=== PATIENT | female | born 1950 | race Two or more races ===

== ENCOUNTER 2020-05-04 21:57 | Inpatient (IN) | payer MEDICARE, OTHER ==
[~2020-05-04] VITALS: Ht 147.3 cm; Wt 82.6 kg
[2020-05-04] MEDS ORDERED: IBUP-1955 PO (22:13)
[2020-05-04] MEDS ORDERED: ACET-2605 PO (22:13)
[2020-05-04] MEDS ORDERED: LISI-603 PO (22:13)
--- NOTE | 2020-05-04 22:20 | NUR ---
Dr. Brenner at bedside for MSE.
--- NOTE | 2020-05-04 22:30 | NUR ---
Xray at bedside.
[2020-05-04] MEDS ORDERED: diphenhydrAMINE 50 MG/1 ML VIAL ONE (22:39)
[2020-05-04] MEDS ORDERED: ZIPRASIDONE MESYLATE 20 MG VIAL IM ONE ×4 (22:39→23:45)
[2020-05-04] MEDS ORDERED: diphenhydrAMINE 50 MG/1 ML VIAL IM ONE (22:45)
--- NOTE | 2020-05-05 00:20 | NUR ---
Unable to draw blood due to patient refusing, notified.
--- NOTE | 2020-05-05 00:21 | NUR ---
Called [facility] to page Pennie Wooten NP.
--- NOTE | 2020-05-05 00:30 | NUR ---
Dr. Brenner on panel call with Pennie Wooten NP.
--- NOTE | 2020-05-05 00:35 | NUR ---
Patient to be medically cleared by Pennie Wooten NP. Patient accepted for admission to [facility], diagnosis: psychosis.
--- NOTE | 2020-05-05 00:43 | NUR ---
Report given to Kandace DELA CRUZU.
[2020-05-05] MEDS ORDERED: IBUPROFEN 600 MG TABLET PO PRN (00:45)
[2020-05-05] MEDS ORDERED: MAG HYDROX/AL HYDROX/SIMETH 30 ML LIQUID UDC PO PRN (01:15)
[2020-05-05] MEDS ORDERED: ACETAMINOPHEN 325 MG TABLET PO PRN (01:15)
[2020-05-05] MEDS ORDERED: BLOOD SUGAR DIAGNOSTIC 1 EACH STRIP VI ONE (01:15)
[2020-05-05] MEDS ORDERED: TEMAZEPAM 7.5 MG CAPSULE PO PRN (01:15)
[2020-05-05] MEDS ORDERED: MAGNESIUM HYDROXIDE 30 ML LIQUID UDC PO PRN (01:15)
[2020-05-05 01:23] VITALS: BP 109/61
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
[2020-05-05 06:37] LABS: *BILIRUBIN,URIN 1+ (NEGATIVE); *BLOOD, URINE NEGATIVE (NEGATIVE); *CLARITY,URINE SLIGHTLY CLOUDY (CLEAR); *COLOR,URINE YELLOW (YELLOW); *KETONES,URINE NEGATIVE (NEGATIVE); *UROBILINOGEN,URINE 0.2 E.U./dl (NORMAL); LEUKOCYTE ESTERASE ,URINE TRACE (NEGATIVE); NITRITE, URINE NEGATIVE (NEGATIVE); PH,URINE 5.5 (5.0-8.0); UGLUCOSE NEGATIVE (NEGATIVE)
[2020-05-05 07:18] LABS: BILIRUBIN,DIRECT 0.1 mg/dL (0.0-0.2); BILIRUBIN,TOTAL 0.4 mg/dL (0.2-1.0); CREATININE 0.8 mg/dL (0.6-1.3); POTASSIUM 3.7 mmol/L (3.5-5.1); TOTAL PROTEIN, SERUM 8.1 g/dL (6.4-8.2)
[2020-05-05 07:27] LABS: THYROID STIMULATING HORMONE 3.348 mIU/mL (0.358-3.740)
[2020-05-05 07:30] VITALS: BP 112/56
[2020-05-05 07:33] LABS: BASOPHILS # (AUTO) 0.1 K/uL (0.0-8.0); BASOPHILS % (AUTO) 0.7 % (0.0-2.0); EOSINOPHILS # (AUTO) 0.1 K/uL (0.0-0.7); EOSINOPHILS % (AUTO) 1.4 % (0.0-7.0); HEMATOCRIT 44.9 % (31.2-41.9); HEMOGLOBIN 15.1 g/dL (10.9-14.3); LYMPHOCYTES % (AUTO) 29.4 % (20.5-51.5); MEAN CORPUSCULAR HGB CONC 34 g/dL (32.3-35.6); MEAN CORPUSCULAR VOLUME 89.5 fL (75.5-95.3); MONOCYTES # (AUTO) 0.4 K/uL (2.0-10.0); MONOCYTES % (AUTO) 6.1 % (0.0-11.0); NEUTROPHILS # (AUTO) 4.2 K/uL (1.8-8.9); NEUTROPHILS % (AUTO) 62.4 % (38.5-71.5); PLATELET COUNT (AUTO) 304 K/uL (179-408); RED BLOOD CELL COUNT(AUTO) 5.02 MIL/uL (3.63-4.92); WHITE BLOOD COUNT (AUTO) 6.8 K/uL (3.8-11.8)
[2020-05-05] MEDS: LISINOPRIL 20 MG TABLET PO SCH (08:26)
[2020-05-05] MEDS: HALOPERIDOL 1 MG TABLET PO SCH ×2 (10:07→17:32)
[2020-05-05 11:49] LABS: RBC,URINE 0-3 /HPF (0-3)
--- NOTE | 2020-05-05 11:50 | NUR ---
KLAUDIA Initial Discharge Plan: Patient currently resides at home [id number] [place], [place] [id number] ([phone]). Patient lives with her daughter, Christine ([phone]) and her grandson, Angelo. Pt would like to return home. KLAUDIA will continue to work with patient, family, and MD to ensure a safe and proper discharge plan.
[2020-05-05 11:51] LABS: BACTERIA,URINE FEW /HPF (NONE SEEN); SQUAMOUS EPITHELIAL CELL,UR FEW /HPF (NONE SEEN)
[2020-05-05 11:52] LABS: URINE AMORPHOUS URATE MANY /HPF
--- NOTE | 2020-05-05 12:02 | NUR ---
KLAUDIA Family Contact: SW let a voicemail for pt's daughter, Christine ([phone]) and her grandson, Angelo to discuss treatment and discharge plan. Waiting for a call back.
--- NOTE | 2020-05-05 13:19 | NUR ---
Firearms Report: Apple Thinner completed and submitted a [employer] firearms report for 5150 danger to self and danger to others certification. A copy of report has been placed in patient chart.
--- NOTE | 2020-05-05 14:39 | NUR ---
UR NOTE: KLAUDIA spoke with Wilmer from [facility] ( ) who stated that he does not have any clinical information on the patient to provide an authorization number yet. This write faxed Wilmer the patient's face sheet, 5150 hold, history and physical, medication and labs. Waiting for a call back for authorization #.
[2020-05-05 15:18] VITALS: BP 120/55
[2020-05-05] MEDS: BENZTROPINE MESYLATE 0.5 MG TABLET PO SCH (17:32)
[2020-05-05 20:00] VITALS: BP 116/56
--- NOTE | 2020-05-05 23:11 | NUR ---
GPS: Pt was received pt in her bed, asleep but responded to her name. No c/o pain or discomfort. Pt is isolative with no interest to participate in programs. stays in her room and covered in blankest. No aggression or abnormal behavior noted. Will continue to monitor.
[2020-05-06 07:38] VITALS: BP 112/68
[2020-05-06] MEDS: BENZTROPINE MESYLATE 0.5 MG TABLET PO SCH ×2 (08:16→17:42)
[2020-05-06] MEDS: LISINOPRIL 20 MG TABLET PO SCH (08:16)
[2020-05-06] MEDS: HALOPERIDOL 1 MG TABLET PO SCH ×2 (08:16→17:42)
--- NOTE | 2020-05-06 13:20 | NUR ---
UR NOTE: KLAUDIA spoke with Wilmer from [facility] ( ) who provided this data analyst report writer with authorization # [id number]
[2020-05-06 15:11] VITALS: BP 170/75
[2020-05-06] MEDS: NITROFURANTOIN/NITROFURAN MAC 100 MG CAPSULE PO SCH (17:42)
[2020-05-06 20:00] VITALS: BP 118/65
[2020-05-06] MEDS: ATORVASTATIN 20 MG TABLET PO SCH (20:23)
--- NOTE | 2020-05-06 21:14 | NUR ---
Received patient sitting in the dinning room. AAOx3. Patient denied pain and discomfort at this time. Engaged in conversation when approached. Compliant with evening medications, at first hesitant saying "Im allergic to poison", reenforced to her the purpose of the medication. safety measures in place and Q15 min checks ongoing.
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
[2020-05-07 07:30] VITALS: BP 130/56
[2020-05-07] MEDS: NITROFURANTOIN/NITROFURAN MAC 100 MG CAPSULE PO SCH ×2 (08:38→17:06)
[2020-05-07] MEDS: BENZTROPINE MESYLATE 0.5 MG TABLET PO SCH ×2 (08:38→17:05)
[2020-05-07] MEDS: HALOPERIDOL 1 MG TABLET PO SCH ×2 (08:38→17:06)
[2020-05-07] MEDS: LISINOPRIL 20 MG TABLET PO SCH (08:39)
--- NOTE | 2020-05-07 10:18 | NUR ---
UR NOTE: Authorization # [id number] faxed Wilmer from [facility] ( ) updated patient clinicals.
--- NOTE | 2020-05-07 10:46 | NUR ---
KLAUDIA Family Contact: SW spoke with pt's daughter, Christine ([phone]) discussing the pt's treatment and discharge plan. Christine stated they would like the patient tor return home stable and they will provide transportation. She also provided this group underwriter with the patient primary care physician's information, Tobi Barclay ([phone]).
--- NOTE | 2020-05-07 10:54 | NUR ---
Hearing Notification: Pt has probable cause hearing today and it was upheld for Grave Disability.
--- NOTE | 2020-05-07 13:36 | NUR ---
KLAUDIA Individual Intervention: SW met with patient and provided brief individual counseling to help patient gain insight towards her presenting problems and encourage patient to attend group activities and engage in social interaction. Patient presents depressed and guarded. Patient was responding in one worded answers and not making direct eye contact for too long. SW asked patient questions such as how pt is feeling and if she has any concerns however patient responses were "fine" and "no". SW positively encouraged patient to share her feelings and talk to peers in group or individually.
[2020-05-07 16:09] VITALS: BP 133/58
[2020-05-07 19:56] VITALS: BP 127/55
[2020-05-07] MEDS: ATORVASTATIN 20 MG TABLET PO SCH (21:00)
--- NOTE | 2020-05-07 21:42 | NUR ---
Patient refused Lipitor QHS, multiple redirection given and rationale was explained, yet refused. will continue to monitor.
[2020-05-08 07:30] VITALS: BP 133/58
--- NOTE | 2020-05-08 08:00 | NUR ---
Awake, alert, oriented x 3, calm, compliant with taking medications. Ate fairly. Had shower
[2020-05-08] MEDS: BENZTROPINE MESYLATE 0.5 MG TABLET PO SCH ×2 (08:20→17:02)
[2020-05-08] MEDS: HALOPERIDOL 1 MG TABLET PO SCH ×2 (08:21→17:02)
[2020-05-08] MEDS: NITROFURANTOIN/NITROFURAN MAC 100 MG CAPSULE PO SCH ×2 (08:21→17:02)
[2020-05-08] MEDS: LISINOPRIL 20 MG TABLET PO SCH (08:21)
[2020-05-08 20:00] VITALS: BP 149/69
[2020-05-08] MEDS: ATORVASTATIN 20 MG TABLET PO SCH (21:00)
--- NOTE | 2020-05-08 22:00 | NUR ---
Patient refused Lipitor QHS, multiple redirections given yet ineffective. will continue to monitor.
[2020-05-09 07:30] VITALS: BP 111/42
[2020-05-09] MEDS: LISINOPRIL 20 MG TABLET PO SCH (08:26)
[2020-05-09] MEDS: HALOPERIDOL 1 MG TABLET PO SCH ×2 (08:29→17:28)
[2020-05-09] MEDS: NITROFURANTOIN/NITROFURAN MAC 100 MG CAPSULE PO SCH (08:29)
[2020-05-09] MEDS: BENZTROPINE MESYLATE 0.5 MG TABLET PO SCH ×2 (08:29→17:28)
--- NOTE | 2020-05-09 11:35 | NUR ---
Patient is cooperative, visible on the unit, and has appropriate interaction with peers and staff. Patient participates in assessment with this abstract writer but only with "yes" and "no" questions. patient denies SI/HI, denies AH/Vh. Patient is medication adherent, no adverse reaction noted. Patient is encouraged to participate in unit groups and activities, to participate in the therapeutic milieu. Patient is able to ambulate independently and perform self care and ADL's.
--- NOTE | 2020-05-09 12:47 | NUR ---
UR NOTE: Authorization # [id number] faxed Wilmer from [facility] ( ) updated patient clinicals.
[2020-05-09 16:00] VITALS: BP 130/56
[2020-05-09 20:00] VITALS: BP 135/63
[2020-05-09] MEDS: ATORVASTATIN 20 MG TABLET PO SCH (20:48)
--- NOTE | 2020-05-10 07:04 | NUR ---
Patient slept for approx 6.15 hrs through the night. She is noted less isolative, less withdrawn. Continue with low mood, blunted affect. will continue to monitor.
[2020-05-10 07:30] VITALS: BP 150/55
[2020-05-10] MEDS: HALOPERIDOL 1 MG TABLET PO SCH ×2 (08:28→16:53)
[2020-05-10] MEDS: LISINOPRIL 20 MG TABLET PO SCH (08:28)
[2020-05-10] MEDS: BENZTROPINE MESYLATE 0.5 MG TABLET PO SCH ×2 (08:28→16:53)
[2020-05-10 16:00] VITALS: BP 156/57
[2020-05-10 20:00] VITALS: BP 121/60
[2020-05-10] MEDS: ATORVASTATIN 20 MG TABLET PO SCH (20:04)
[2020-05-11] MEDS: LORAZEPAM 1 MG TABLET PO PRN (02:54)
[2020-05-11 07:30] VITALS: BP 108/45
[2020-05-11] MEDS: LISINOPRIL 20 MG TABLET PO SCH (09:00)
[2020-05-11] MEDS: BENZTROPINE MESYLATE 0.5 MG TABLET PO SCH ×4 (09:06→21:00)
[2020-05-11] MEDS: HALOPERIDOL 1 MG TABLET PO SCH ×2 (09:07→16:18)
[2020-05-11] MEDS ORDERED: ONDANSETRON HCL 4 MG TABLET PO PRN (10:15)
[2020-05-11 16:17] VITALS: BP 134/49
[2020-05-11 20:45] VITALS: BP 125/58
[2020-05-11] MEDS: ACETAMINOPHEN ES 500 MG TABLET PO PRN (21:02)
[2020-05-11] MEDS: ATORVASTATIN 20 MG TABLET PO SCH (21:02)
--- NOTE | 2020-05-12 02:00 | NUR ---
RECEIVED PATIENT IN BED.NOTED ISOLATIVE,WITH BLUNTED AFFECT AND LOW MOOD. SELECTIVE MEDICATION COMPLIANT SHE REFUSED HER COGENTIN.RISK AND BENEFIT EXPLAINED.LATER REQUESTED FOR TAB TYLENOL FOR HEADACHE. SAME GIVEN WITH GOOD EFFECT. VISUAL CHECKS MADE ON HER FOR SAFETY. WILL CONTINUE TO MONITOR.
--- NOTE | 2020-05-12 06:45 | NUR ---
SLEPT FOR 6:45HOURS.
[2020-05-12] MEDS: HALOPERIDOL 1 MG TABLET PO SCH ×2 (08:48→17:06)
[2020-05-12] MEDS: LISINOPRIL 20 MG TABLET PO SCH (08:49)
[2020-05-12] MEDS: BENZTROPINE MESYLATE 0.5 MG TABLET PO SCH ×4 (08:49→20:09)
[2020-05-12 09:12] VITALS: BP 124/53
--- NOTE | 2020-05-12 11:20 | NUR ---
UR NOTE: Authorization # [id number] faxed Wilmer from [facility] ( ) updated patient clinicals.
[2020-05-12 17:35] VITALS: BP 133/69
[2020-05-12] MEDS: ACETAMINOPHEN ES 500 MG TABLET PO PRN (19:41)
[2020-05-12] MEDS: LORAZEPAM 1 MG TABLET PO PRN (19:41)
[2020-05-12 20:00] VITALS: BP 161/62
[2020-05-12] MEDS: ATORVASTATIN 20 MG TABLET PO SCH (20:09)
--- NOTE | 2020-05-13 01:44 | NUR ---
Received Pt in her room, anxious and upset on approach. Pt c/o (R) sided 7/10 leg pain, Tylenol ES 1000mg administered as ordered at 1940 with good effect, Pt expressed relief at 2029. Ativan 1mg administered for anxiety at 1940 with good effect, Pt appeared calm and relaxed at 2030. Exhibited flat affect and has episodes of irritability. Denies AH/VH but appears internally preoccupied. Compliant with medications, cooperative with staff direction. Denies SI/HI, verbally contracts for safety. BP elevated at beginning of shift, and decreased to a 145/66 upon re-check, Pt denies any s/s of HTN. In no acute physical distress, will continue to monitor.
[2020-05-13 07:39] VITALS: BP 122/49
--- NOTE | 2020-05-13 08:01 | NUR ---
Discharge Note: Patient will be discharged back home [address] [place] [address] ([phone]). Patients daughterChristine ([phone]) is aware and agreeable with discharge plans and arranged transportation today between 9:30-10AM. Patient is alert and oriented times 4. Patient presents with appropriate mood and bright affect. Patient denies suicidal or homicidal ideation. Patient denies visual or auditory hallucinations. Patient is aware and agreeable with discharge plans. Patient will be following up with her primary care physician Tobi Barclay at [address], [place] [address] ([phone]) and has an appointment scheduled on Thursday May 21, 2020 at 11:30am via Telehealth. Patient will be following up with Nurse Practitioner Christine Peralta at [facility] [address], [address] ([phone]) and has an appointment scheduled on June 09, 2020 at 11AM via Telephone for an intake evaluation and then will be assigned a psychiatrist.
[2020-05-13] MEDS: HALOPERIDOL 1 MG TABLET PO SCH (08:30)
[2020-05-13] MEDS: BENZTROPINE MESYLATE 0.5 MG TABLET PO SCH (08:30)
[2020-05-13 08:31] VITALS: BP 122/49
[2020-05-13] MEDS: LISINOPRIL 20 MG TABLET PO SCH (08:31)
--- NOTE | 2020-05-13 09:15 | NUR ---
GPS: Nursing Notes: Discharge Notes: Patient is awake and responding to her name, cooperative with nursing care, compliant with her medications, following staff directions, A/Ox4, denies any SI/HI, denies any AH/VH, denies any pain or discomfort, denies any SOB, discharge to Patient's daughter Michael King at [address] [place] [address]. Charge Nurse called [facility] at , picked up by daughter arranged transportation, staff called daughter - Christine, informed her that she needs to pickling grader patient's medication form [facility] and instructions of her discharge given too. Patient took all her belongings with her. Patient will be following up with her primary care physician Tobi Barclay at [address], [place] [address] ([phone]) and has an appointment scheduled on Thursday May 21, 2020 at 11:30am via Telehealth. Patient will be following up with Nurse Practitioner Christine Peralta at [facility] [address], [address] ([phone]) and has an appointment scheduled on June 09, 2020 at 11AM via Telephone for an intake evaluation and then will be assigned a psychiatrist.
--- NOTE | 2020-05-13 09:33 | NUR ---
called in prescription for , spoke with gricelda qiu [phone]
== END 2020-05-13 09:15 | disposition home or self-care (01) | DRG 885 ==
LOC: ER 21:57 → GPS 05-05 00:55
PROVIDERS: ADMIT Psychiatry & Neurology Psychiatry; ATTEND Family Medicine
DX: F29 Unspecified psychosis not due to a substance or known physiological condition (principal); N39.0 Urinary tract infection, site not specified; D68.69 Other thrombophilia; E78.5 Hyperlipidemia, unspecified; I10 Essential (primary) hypertension; E66.9 Obesity, unspecified; R73.03 Prediabetes; F31.9 Bipolar disorder, unspecified; Z73.6 Limitation of activities due to disability; Z68.38 Body mass index [BMI] 38.0-38.9, adult; F25.9 Schizoaffective disorder, unspecified; B96.89 Other specified bacterial agents as the cause of diseases classified elsewhere
CPT/HCPCS: 36415; 70030-TC; 71045; 84443; 85025; 85730; 87086; 93005; A4663; A9150; J1200; J3486